=== PATIENT | male | born 1980 | race Caucasian/White ===

== ENCOUNTER 2017-06-08 14:24 | Emergency (ER) | payer OTHER ==
[~2017-06-08] VITALS: Ht 180.3 cm; Wt 77.1 kg
[~2017-06-08 14:24] MED LIST: CYCL10; OMEP40CA12 PO; RANI150 PO
[2017-06-08 15:18] LABS: BASOPHILS ABSOLUTE AUTO 0.01 K/mm3 (0.00-0.23); BASOPHILS PERCENT AUTO 0 % (0-2); EOSINOPHILS PERCENT AUTO 1 % (0-6); Hematocrit 38.6 % (37.0-53.0); Hemoglobin 13.5 g/dL (13.5-17.5); IMMATURE GRAN ABSOLUTE AUTO 0.02 K/mm3 (0.00-0.10); IMMATURE GRAN PERCENT AUTO 0 % (0-1); LYMPHOCYTES ABSOLUTE AUTO 2.34 K/mm3 (0.84-5.20); LYMPHOCYTES PERCENT AUTO 28 % (21-46); MONOCYTES ABSOLUTE AUTO 0.45 K/mm3 (0.16-1.47); MONOCYTES PERCENT AUTO 5 % (4-13); Mean Corpuscular HGB 31.2 pg (26.0-34.0); Mean Corpuscular Volume 89 fL (80-100); Mean Platelet Volume 10.2 fL (9.1-12.4); NEUTROPHILS ABSOLUTE AUTO 5.35 K/mm3 (1.96-9.15); NEUTROPHILS PERCENT AUTO 65 % (41-73); Platelet Count 227 K/mm3 (150-400); RDW Coefficient Variation 12.6 % (11.7-14.2); RDW Standard Deviation 40.9 fL (35.1-46.3); Red Blood Cell Count 4.33 M/mm3 (4.30-5.90); White Blood Cell Count 8.27 K/mm3 (4.00-11.30)
[2017-06-08 15:40] LABS: Anion Gap 7 mmol/L (6-16); Blood Urea Nitrogen 20 mg/dL (8-24); Bun/Creatinine Ratio 20.3 (12.0-20.0); CO2, Blood 27 mmol/L (21-32); Calcium, Blood 8.6 mg/dL (8.5-10.1); Chloride, Blood 109 mmol/L (98-108); Creatinine, Blood 0.99 mg/dL (0.60-1.20); Glomerular Filtration Rate >60 (60-); Glucose, Blood 112 mg/dL (70-99); Sodium, Blood 143 mmol/L (136-145)
[2017-06-08] MEDS ORDERED: CEPH500 PO (17:49)
[2017-06-08] MEDS ORDERED: Roxicodone5 MG PO (17:49)
== END 2017-06-08 18:13 | disposition home or self-care (01) ==
LOC: ER 14:24
PROVIDERS: Emergency Medicine
DX: S98.122A Partial traumatic amputation of left great toe, initial encounter (principal); S98.142A Partial traumatic amputation of one left lesser toe, initial encounter; Z88.5 Allergy status to narcotic agent; Z87.891 Personal history of nicotine dependence; Z23 Encounter for immunization; W22.8XXA Striking against or struck by other objects, initial encounter; Y99.0 Civilian activity done for income or pay
CPT/HCPCS: 12002; 73630; 80048; 85025; 90471; 90714; 96374; 96375; 99284; J0690; J2270

== ENCOUNTER 2018-06-29 06:12 | Day surgery (SDC) | payer OTHER ==
[~2018-06-29] VITALS: Ht 177.8 cm; Wt 76.1 kg
[~2018-06-29 06:12] MED LIST changes: +CEPH500 PO; +CYCL10 PO; +DICL75ER PO; +DICLO GEL1 EACH; +PREG150 PO; +Roxicodone5 MG PO
--- NOTE | 2018-06-29 08:58 | NUR ---
06/29/18 0858 Martina Ornelas AT 0820 PT WAS DC'D HOME W/INSTRUCTIONS FOR CARE AND F/U. LANG PO FLUIDS WELL. DENIED PAIN AND NAUSEA T/O. DSG C/D/I TO CAR VIA W/C W/SBA LANG WELL
== END 2018-06-29 13:30 | disposition home or self-care (01) ==
LOC: ORSCSDS 06:12
PROVIDERS: Podiatrist Foot & Ankle Surgery
PROC: 0Y6S0Z1 Detachment at Left 2nd Toe, High, Open Approach (ICD-10-PCS; principal; 2018-06-29 07:00)
DX: M79.2 Neuralgia and neuritis, unspecified (principal)
CPT/HCPCS: 88305; 88311; J0690; J2250; J3010; J7120